=== PATIENT | male | born 1990 | race Caucasian/White ===

== ENCOUNTER 2018-01-25 08:04 | Inpatient (IN) | payer OTHER ==
[~2018-01-25] VITALS: Ht 177.8 cm; Wt 71.3 kg
--- NOTE | 2018-01-25 08:10 | ED GENERAL ADULT ---
See Addendum History of Present Illness General Chief Complaint: Psychiatric Related Complaint Stated Complaint: +SI Source: patient Exam Limitations: no limitations Vital Signs & Intake/Output Vital Signs & Intake/Output Vital Signs Date Time Temp Pulse Resp B/P B/P Pulse O2 O2 Flow FiO2 Mean Ox Delivery Rate 01/26 0821 98 Room Air Room Air 01/25 809 98.0 80 20 142/82 99 Room Air Allergies Coded Allergies: No Known Allergies (01/25/18) Triage Nurses Notes Reviewed? yes Onset: Abrupt Duration: day(s): Timing: recent history HPI: 01/25/18 8:50 AM 27-year-old man presents to the emergency department for depression and suicidal ideation. According to the patient he's been using intravenous cocaine and heroin over the last 10 years. He says he's been into detox and through drug rehabilitation programs in the past. He is unable to get clean. He says he last used yesterday. He has track pimentel in both upper extremities. He denies any past medical problems. Status post suicidal attempt in May of this year. He tried to hang himself. Past History Travel History Traveled to [place] past 21 day No Medical History Any Pertinent Medical History? see below for history Surgical History Surgical History: non-contributory Psychosocial History What is your primary language Singaporean Tobacco Use: Current Daily Use Daily Tobacco Use Amount/Type: => 5 Cigarettes daily ETOH Use: alcoholic Illicit Drug Use: heroin, crack meth Family History Hx Contributory? No Review of Systems Review of Systems Constitutional: Denies: fever. EENTM: Reports: no symptoms. Respiratory: Denies: short of breath. Cardiovascular: Denies: chest pain. GI: Reports: no symptoms. Genitourinary: Reports: no symptoms. Musculoskeletal: Reports: no symptoms. Skin: Reports: no symptoms. Neurological/Psychological: Reports: depressed. Hematologic/Endocrine: Reports: no symptoms. Immunologic/Allergic: Reports: no symptoms. Physical Exam Physical Exam General Appearance: alert, awake, anxious, mild distress Head: atraumatic, normal appearance Eyes: Bilateral: normal appearance, PERRL, EOMI. Ears, Nose, Throat: normal pharynx, normal ENT inspection Neck: normal inspection, supple Respiratory: normal breath sounds, chest non-tender, no respiratory distress Cardiovascular: regular rate/rhythm Peripheral Pulses: 4+ radial (R), 4+ radial (L) Gastrointestinal: soft, non-tender Back: normal range of motion Extremities: normal range of motion Neurologic/Psych: awake, alert, oriented x 3 Skin: punctate abrasions RUE Core Measures ACS in differential dx? No CVA/TIA Diagnosis: No Sepsis Present: No Sepsis Focused Exam Completed? No Progress Differential Diagnoses I considered the following diagnoses in my evaluation of the patient: [ Depression, suicidal ideation, substance abuse] Plan of Care: Orders Procedure Date/time Status URINE DRUG SCREEN FOR ER ONLY 01/25 829 Active Laboratory Tests 01/25/18 0830: Methadone Screen Pending, Barbiturate Screen Pending, Ur Phencyclidine Scrn Pending, Amphetamines Screen Pending, U Benzodiazepines Scrn Pending, Urine Cocaine Screen Pending, Urine Cannabis Screen Pending Initial ED EKG: none Departure Departure Disposition: STILL A PATIENT Condition: Stable Clinical Impression Primary Impression: Depression Secondary Impressions: Opiate dependence Departure Forms: Customer Survey General Discharge Information Comments 01/25/18 9 AM The patient was treated with by mouth clonidine and a nicotine patch. Crisis consultation was requested. Critical Care Note Critical Care Note Critical Care Time: non-applicable
[2018-01-25 09:00] VITALS: BP 142/82
[2018-01-25 09:54] LABS: ABSOLUTE BASOPHIL COUNT 0 /CUMM (0.0-0.2); ABSOLUTE EOSINOPHIL COUNT 0.1 /CUMM (0.0-0.7); ABSOLUTE LYMPH COUNT 1.2 /CUMM (1.2-3.4); ABSOLUTE MONOCYTE COUNT 0.4 /CUMM (0.10-0.60); BASOPHIL % 0.4 % (0.0-2.0); EOSINOPHIL % 1.6 % (0-5); GRANULOCYTE % 75.1 % (42.2-75.2); HEMATOCRIT 45.8 % (42-52); MEAN CORPUSCULAR HGB 25.6 PG (27.0-31.0); MEAN CORPUSCULAR HGB CONC 31.6 G/DL (33.0-37.0); MEAN CORPUSCULAR VOLUME 81.1 FL (80.0-94.0); MEAN PLATELET VOLUME 8.6 FL (7.4-10.4); PLATELET COUNT 237 /CUMM (130-400); RBC DISTRIBUTION WIDTH 14.5 % (11.5-14.5); RED BLOOD CELL CT 5.65 /CUMM (4.70-6.10); WHITE BLOOD CELL COUNT 6.6 /CUMM (4.8-10.8)
[2018-01-25] MEDS ORDERED: NICOTINE PATCH1 EAC3 TOP (12:28)
--- NOTE | 2018-01-25 14:41 | ED PSYCH CRISIS CONSULTATION ---
See Addendum Crisis Consult Basic Assessment Date of Consult: 01/25/18 Responsible Person/Accompanied By: Self Insurance Authorization: Insurance #1: Insurance name: JONATHAN GOODWIN Phone number: Policy number: [id number] Group number: Authorization number: ED Provider: Patient's ED Provider: Torres Olsen DO Primary Care Physician: Patient's PCP: Patient Has No Primary Care Dr PCP's Phone Number: Current Psychiatrist: Denies Chief Complaint: Psychiatric Related Complaint Patient's Quote: "I'm suicidal and I can't stop using drugs" Present Illness: Assessment completed by Jenifer Mcclendon LCSW: Pt is a 27 year old single, , male with an extensive history of chronic substance use who brought himself to the ED this morning reporting suicidal thoughts. Medically cleared. Pt reports suicidal thoughts with a plan to overdose on a variety of substances or drive his car off the road due to his ongoing substance use, legal issues, unemployment, and homelessness. Pt denies HI/AH/VH. Pt states he nearly drove his car off the road last evening while driving 80[address] on [address] highway but drove himself to [facility] instead after thinking of his parents and siblings. Pt has been using 4 bundles of IV heroin, approximately $50-$100 of crack cocaine, about 2 pints of Whiskey, and about 4mg-6mg of Benzodiazepines daily since 2014. He states he has been using substances since 2006 and has been to multiple substance abuse facilities but always relapsed upon discharge. Pt admits he was last in treatment at [facility] but signed himself out AMA about a week ago and relapsed. He reports his longest sobriety was from [id number] when he was on Methadone through the [facility] however relapsed after his cousin completed suicide by hanging in 2014. Pt reports having one prior suicide attempt by hanging in May 2017 but the nylon strap he used broke. He reports one prior history of IP psych admission in 2012 for SI thoughts and substance use. No current medications or history of. He reports having court tomorrow for charges of larceny and possession of narcotics and admits feeling anxious about it. He has been living out of his car since December of this year after losing his apartment because he did not pay his rent. Pt states his parents are supportive but he is not allowed to live with them due to his chronic substance use and stealing to support his habit. This check writer spoke to pt father, Les, by phone. Dad concurs with pt history and self-report. Father states he is very worried about pt as he believes pt is at his wits end because he cannot seem to stay sober, is homeless, and has legal problems. Father denies pt has any history of violence. Patient's Address: [address] [place] [address] Other Phone Number: Who Do You Live With? Other (see notes) (Self- lives out of his car) Family/Informants Interviewed: Telephone call with pt's father, Les Rainey, Allergies - Coded Allergies: naloxone (ANAPHYLAXIS 01/25/18) Current Medications - Scheduled Medications Nicotine (Nicotine Patch) 21 MG/24 HOUR PATCH.TD24 1 PAT TOP DAILY SMOKING CESSATION #14 (Reported) Entered as Reported by Gale Hu on 01/25/18 1228 Laboratory Results: Laboratory Tests 01/25/18 1300: Troponin I Cancelled 01/25/18 0945: Anion Gap 11, Estimated GFR > 60, BUN/Creatinine Ratio 17.1, Glucose 114 H, Calcium 10.0, Total Bilirubin 0.5, AST 17, ALT 28, Alkaline Phosphatase 63, Troponin I < 0.01, Total Protein 6.9, Albumin 4.1, Globulin 2.8, Albumin/ Globulin Ratio 1.5, CBC w Diff NO MAN DIFF REQ, RBC 5.65, MCV 81.1, MCH 25.6 L, MCHC 31.6 L, RDW 14.5, MPV 8.6, Gran % 75.1, Lymphocytes % 17.4 L, Monocytes % 5.5, Eosinophils % 1.6, Basophils % 0.4, Absolute Granulocytes 5.0, Absolute Lymphocytes 1.2, Absolute Monocytes 0.4, Absolute Eosinophils 0.1, Absolute Basophils 0, Serum Alcohol < 10.0 01/25/18 0830: Urine Opiates Screen > 4000.00 H, Methadone Screen < 40, Barbiturate Screen 65, Ur Phencyclidine Scrn < 6.00, Amphetamines Screen < 100, U Benzodiazepines Scrn > 800 H, Urine Cocaine Screen > 1000 H, Urine Cannabis Screen < 5.00 Past History Past Surgical History Surgical History: non-contributory Psychosocial History Strengths/Capabilities: Seeking treatment, family support, education level, resourceful, sense of humor Physical Limitations (Interventions): Denies Psychiatric Treatment History Psych Treatment Psychiatric Treatment Yes Inpatient Treatment Yes Outpatient Treatment No Location of Treatment Inpatient hx:[facility] 2012. Reason for Treatment Suicidal thoughts, substance abuse Dates of Treatment 2012 x 1 week Response to Treatment Fair Diagnosis by History: Unspecified Depression, chronic polysubstance use (Opiates, Cocaine, ETOH, Benzodiazapines) Substance Use/Abuse History Drug Use/Abuse 1 Substances Used/Abused Yes Substance Used/Abused Alcohol (Whiskey) First Use 2006 Last Used 01/23/18 How much used/taken 2 pints How often Daily For how long Primarily daily over the past 10 years Route of use by mouth Drug Use/Abuse 2 Substances Used/Abused Yes Substance Used/Abused Benzodiazepines (Either Xanex, Ativan or Klonop) First Use 2011 Last Used 01/24/18 How much used/taken Xanex-4mg, Klonopin- 6mg, Ativan-6mg How often Daily.Either Xanex,Ativan,or Klonopin(will not use all at same time For how long since 2014 Route of use by mouth Drug Use/Abuse 3 Substances Used/Abused Yes Substance Used/Abused Crack Cocaine First Use 2011 Last Used 01/24/18 How much used/taken $50-$100 per day How often Daily For how long since 2014 Route of use smoking Drug Use/Abuse 4 Substances Used/Abused Yes Substance Used/Abused Non-Prescribed Opiates (Percocets) First Use since 2011 Last Used 2011 How much used/taken doesn't remember How often daily For how long 5 years Route of use by mouth Drug Use/Abuse 5 Substances Used/Abused Yes Substance Used/Abused Heroin First Use 2011 Last Used 01/24/18 How much used/taken 4 bundles per day How often daily For how long since 2014 Route of use Intravenous Substance Abuse Treatment Substance Abuse Treatment Past Substance Abuse [place] Yes Inpatient Treatment Yes ([facility]) Outpatient Treatment Yes ([facility]) Location of Treatment [facility] [place], [facility] Reason for Treatment Opiate use, Cocaine use, Alcohol use, Benzodiazapine use Dates of Treatment Extensive histroy since 2006, last tx at [facility] until approx 1 week ago Response to Treatment Inconsistent. Longest sobriety was [id number] Comments: [place]:May 2017, [facility]: 2006, 2008, 2010, [facility]: 2010, 2011, 2012, 2017(left AMA 1 week ago) Current Mental Status Mental Status Orientation: Person, Place, Situation Affect: WNL Speech: WNL Neuro-vegetative: Appetite Decreased, Energy Decreased, Loss of Interest, Sleep Disturbance Appearance Appearance- Dress/Hygiene: Positive eye contact, scab on nose, in BH garb Behaviors Thought Process: WNL Thought Content: WNL Memory: WNL Insight: Fair SI/HI Risk Assessment Past Suicidal Ideation/Attempts Yes (x 1 year) Current Suicidal Ideation/Att Yes Past Homicidal Ideation/Att: No Current Homicidal Ideation/Attempts No Degree of Intent: Plan, States Intent, Thoughts/No Intent (OD or drive car off road) Danger To: Self Gravely Disabled: Poor Judgment Risk Factors: high anxiety/distress, history of suicide atmpts, SA/MH hospitalized, substance abuse, isolate/no social support, male, limited support, homeless Lethality Ratin PTSD Checklist PTSD Done? patient declined ED Management Sitter: Yes Restraints: No DSM5/PS Stressors/Medical Prob Diagnosis' (DSM 5, Stressors, Medical): F32.9 Unspecified Depressive Disorder F11.20 Opiate Use, Severe F14.20 Cocaine Use, Severe F10.20 Alcohol Use, Severe F13.20 Sedative, Hypnotic Anxiolytic Use, Severe Current GAF: 30 Departure Disposition Psych Medical Clearance Date: 01/25/18 Medically Cleared at: 1300 Time Started: 1300 Time Ended: 1345 Psychiatrist Consulted: Dr. Reid Date Disposition Established: 01/25/18 Time Disposition Established: 1530 Plan for Disposition - Modality: Hold over for ongoing assessment of risk Rationale for Disposition: Pt requires further observation and assessment of risk Referrals Patient Has No Primary Care Dr (PCP/Family)
[2018-01-25 16:14] VITALS: BP 113/57
[2018-01-25 23:21] VITALS: BP 112/55
[2018-01-26] VITALS (13 sets, daily range): BP systolic 99–128; BP diastolic 53–84
--- NOTE | 2018-01-26 22:50 | History & Physical ---
Matt HARRIS,[facility] 01/26/18 9182: General Information and HPI MD Statement: I have seen and personally examined LESTER THOMAS and documented this H&P. The patient is a 27 year old M who presented with a patient stated chief complaint of [Alcohol detox]. Source of Information: patient Exam Limitations: no limitations History of Present Illness: Mr. Thomas is a 27-year-old gentleman with past medical history of polysubstance abuse, anxiety and depression with suicidal ideation(suicide attempt in 2017) presents for alcohol detox. Patient states that he drinks around 750ml of whiskey per day for the past 10 years. His last drink was 5 days ago. Also had suicidal ideations and wanted to hang himself(does not have the suicidal ideations anymore). Reports nausea and vomiting 2, but denies any headache, visual or auditory hallucinations and homicidal ideations. He also had an episode of seizure last May when he tried to detox himself. He was admitted to [facility] in 2010 for alcohol detox. He was recently enrolled in an alcohol detox program at [facility], but left A 1 week ago. His last period of sobriety was from 2012- 2014 and during that period he was on methadone(from [facility]). He also admits to IV heroine shot before coming, states he takes around 10 shots a day and also used cocaine on Friday. Patient also complaining of lower abdominal pain, which is sharp and 5/10 in intensity, starting today associated with nonbloody loose watery stools 3 episodes. Also endorses dysuria and increased frequency. Denies any fever/ chills. Patient is homeless and has been living in his car for the past 1 month. Both the parents also have history of alcohol abuse currently sober. Allergies/Medications Allergies: Coded Allergies: naloxone (ANAPHYLAXIS 01/25/18) Home Med list Nicotine (Nicotine Patch) 21 MG/24 HOUR PATCH.TD24 1 PAT TOP DAILY SMOKING CESSATION (Reported) Past History Travel History Traveled to [place] past 21 day No Medical History Psychiatric: anxiety, depression, IV drug abuse, substance abuse Isolation History: Standard Surgical History Surgical History: non-contributory Past Family/Social History Psychosocial History Where do you live? Other (Homeless) Smoking Status: Current Everyday Smoker (1 PPD x 20 yrs ) ETOH Use: alcoholic Illicit Drug Use: heroin, crack meth Functional Ability ADLs Independent: dressing, eating, toileting, bathing. Ambulation: independent IADLs Independent: shopping, housework, finances, food prep, telephone, transportation , medication admin. Review of Systems Review of Systems Constitutional: Reports: no symptoms. EENTM: Reports: no symptoms. Cardiovascular: Reports: no symptoms. Respiratory: Reports: no symptoms. GI: Reports: abdominal pain, diarrhea, nausea, vomiting. Genitourinary: Reports: no symptoms. Musculoskeletal: Reports: no symptoms. Skin: Reports: no symptoms. Neurological/Psychological: Reports: no symptoms. Hematologic/Endocrine: Reports: no symptoms. Immunologic/Allergic: Reports: no symptoms. All Other Systems: Reviewed and Negative Exam & Diagnostic Data Last 24 Hrs of Vital Signs/I&O Vital Signs Date Time Temp Pulse Resp B/P B/P Pulse O2 O2 Flow FiO2 Mean Ox Delivery Rate 01/27 0202 98.0 70 18 118/62 01/27 0153 98.0 70 16 118/62 97 Room Air 01/26 2354 98.4 73 18 124/59 01/26 2353 98.4 73 18 124/59 98 Room Air 01/26 2152 100.0 78 18 128/76 97 Room Air Room Air 01/26 2151 100.0 86 18 128/76 01/26 2036 100.1 72 18 121/65 01/26 1830 100.8 76 12 127/65 01/26 1821 100.8 76 12 127/65 99 Room Air 01/26 1626 98.2 85 18 128/84 97 Room Air Room Air 01/26 1625 98.2 85 18 128/84 01/26 1524 98.2 80 18 112/60 01/26 1424 98.1 78 18 108/53 01/26 1422 98.1 78 18 108/53 01/26 1348 98.1 78 18 108/53 99 01/26 1030 98.4 74 18 113/74 01/26 1019 98.9 74 18 113/66 98 Room Air 01/26 0830 96.6 63 18 115/67 01/26 0704 97.3 76 18 112/59 98 Room Air 01/26 0448 98.2 96 18 118/78 01/26 0448 98.2 96 18 118/78 96 Room Air Physical Exam General Appearance Alert, Oriented X3, Cooperative, No Acute Distress, Somnolent Skin No Rashes, No Breakdown HEENT Atraumatic, PERRLA, EOMI, Mucous Membr. moist/pink Neck Supple, No JVD Cardiovascular Regular Rate, Normal S1, Normal S2, No Murmurs Lungs Clear to Auscultation, Normal Air Movement Abdomen Normal Bowel Sounds, Soft, No Tenderness Extremities No Clubbing, No Cyanosis, No Edema, Normal Pulses Last 24 Hrs of Labs/Vicente: Laboratory Tests 01/27/18 0055: CBC w Diff MAN DIFF ORDERED, RBC 5.82, MCV 79.5 L, MCH 26.8 L, MCHC 33.8, RDW 14.0, MPV 8.6, Gran % 85.3 H, Lymphocytes % 12.1 L, Monocytes % 2.4, Eosinophils % 0.2, Basophils % 0, Absolute Granulocytes 12.3 H, Segmented Neutrophils 84 H, Absolute Lymphocytes 1.8, Lymphocytes 11 L, Monocytes 5, Absolute Monocytes 0.3, Absolute Eosinophils 0, Absolute Basophils 0, Platelet Estimate ADEQUATE, Polychromasia 1+, Poikilocytosis 2+, Anisocytosis 1+, Microcytic Cells 1+, Ovalocytes 1+, Stomatocytes 1+, Fld Total RBCs Counted 100 Microbiology 01/26 2354 URINE ROUT: Urine Culture - ORD 01/26 2354 BLOOD: Blood Culture - COLB 01/26 2354 BLOOD: Blood Culture - COLB Diagnostic Data EKG Results Normal sinus rhythm Heart rate 81 T-wave inversions in V3 to V6 QTC of 479 CXR Results FINDINGS: No significant abnormality is noted involving the heart, lungs, mediastinum, bony thorax or soft tissues. IMPRESSION: Unremarkable examination. Assessment/Plan Assessment: Mr. Thomas is a 27-year-old gentleman with past medical history of alcohol dependence and polysubstance abuse(opiates, heroine, cocaine), anxiety and depression with suicidal ideation(suicide attempt in 2017) presents for alcohol detox. Problem List; 1. Alcohol detox 2. Suicidal ideation 3. Opiates, benzos, IV heroine and cocaine abuse 4. Febrile with Tmax of 100.8 and Leukocytosis 5. Abdominal pain, nausea and vomiting - likely viral gastroenteritis 6. Dysuria and increased urinary frequency 7. EKG changes; T-wave inversions in leads V3-V6 - We will admit the patient to general medicine floor - CIWA protocol with IV ativan as needed and schedueled PO ativan 2mg Q 6 - Replete Thiamine and Folate - Zofran as needed for nausea and vomiting - Psych consult - Social Work consult - Continue 1:1 sitter for suicidal ideations. - Will check HIV and Hep panel given IV drug abuse - UA at the time of presentation was negative, Will repeat UA and Obtain Urine culture as patient febrile 100.8 with white count of 14.5 and complaining of lower abdominal pain and urinary symptoms. - CT abdomen and pelvis obtained for new onset abdominal pain, diarrhea and fever, negative for any acute pathology. Will obtain C. difficile if the diarrhea persists. - Will repeat CBC in am to monitor leukocytosis. - We will repeat troponins and EKG 3, given T wave changes. No old EKG available for comparison. DVT prophylaxis; subcutaneous heparin Patient is full code As Ranked By This Provider Problem List: 1. Opiate dependence 2. Alcohol dependence 3. Suicidal ideations Core Measures/Misc (07/27) Acute Coronary Syndrome ACS Diagnosis: No Congestive Heart Failure Congestive Heart Failure Diagnosis No Cerebrovascular Accident CVA/TIA Diagnosis: No VTE (View Protocol) VTE Risk Factors Age>40 No Mechanical VTE Prophylaxis d/t N/A MechProphylax Ordered No VTE Pharm Prophylaxis d/t NA PharmProphylax ordered Sepsis (View protocol) Sepsis Present: No Jorge Arguelles 01/27/18 0235: Resident Review Statement Resident Statement: examined this patient, discussed with paralegal internship, agreed with paralegal internship, discussed with family, reviewed EMR data (avail), discussed with nursing , discussed with case mgmt, reviewed images, amended to note Other Findings: This is a 27-year-old male with extensive history of chronic substance abuse/ opiate, cocaine, alcohol abuse, smoker, unemployed, homeless, depression, suicidal ideation, IV drug abuse presented to the ED on 01/25/2018 reporting suicidal ideation and alcohol detoxification. Pt reports suicidal thoughts with a plan to overdose on a variety of substances or drive his car off the road due to his ongoing substance use, legal issues, unemployment, and homelessness. Pt denies HI. Pt states he nearly drove his car off the road last evening while [place] 80[address] [place] [address] but drove himself to [facility] instead after thinking of his parents and siblings. Pt has been using 4 bundles of IV heroin, crack cocaine, about 750 ml of Whiskey , and about 4mg-6mg of Benzodiazepines daily since 2014. He states he has been using substances since 2006 and has been to multiple substance abuse facilities but always relapsed upon discharge. Pt admits he was last in treatment at [facility] but signed himself out AMA about a week ago and relapsed. He reports his longest sobriety was from 2012- 2014 when he was on Methadone through the [facility] however relapsed after his cousin completed suicide by hanging in 2014. Pt reports having one prior suicide attempt by hanging in May 2017 but the nylon strap he used broke. He reports one prior history of IP psych admission in 2012 for SI thoughts and substance use. Patient reports that his last alcohol drink was 5 days ago, 750 mL of whiskey. He also reports that he took 4 bundles of crack cocaine and 10 shots of IV heroine before coming to the emergency room. Also reports withdrawal seizures history in 2016. Never intubated. Patient reports nausea, vomiting, lower abdomen pain, dysuria, frequency. He denied any sweating, agitation, anxiety, visual hallucinations, auditory hallucinations. He is alert awake and oriented urinary complaints. He is smoking 1 pack per day for last 20 years. vitals Febrile MAXIMUM TEMPERATURE 100.8, heart rate 70, respiratory rate 18, blood pressure 122 seconds, saturating at 97 on room air. On exam HEENT within normal limits S1-S2 normal no murmurs Bilateral air entry good Abdomen soft, nondistended, tenderness on palpation lower quadrant. Motor exam within normal limits. No tremors Lower extremity no swelling Bilateral arms -punctate abrasions, track pimentel Labs CBC, BMP normal LFTs normal Troponin negative Utox positive for opiates, benzos, cocaine Chest x-ray no acute cardiopulmonary findings CT abdomen significant abnormality EKG normal sinus rhythm, rate 68, T wave inversion in inferior leads 2, 3 aVF and V3 V4 V5 V6. ua nl. 1. Alcohol detoxification Patient presented with suicidal ideation and requesting for alcohol detoxification. Last drink was 5 days prior to the admission. However he abused IV cocaine and IV heroine before coming to the ER. U tox positive for opiate, benzo, cocaine. * Admit to general med * Vitals every shift * Monitor CIWA * 2 mg every 6 Ativan, taper daily * IV Ativan as per CIWA protocol * Multivitamin * Thiamine * Folate * Psych consult in the a.m. * oyster bed worker consult * Continuous observation monitoring/sitter 2. Nausea /vomiting/diarrhea Most likely gastroenteritis. IV Zofran as needed for nausea. will Get C. difficile if patient has persistent diarrhea 3. Smoker Nicotine patch 21 mg daily 4. IV drug abuser Pt has been using 4 bundles of IV heroin, crack cocaine, about 750 ml of Whiskey , and about 4mg-6mg of Benzodiazepines daily since 2014. He states he has been using substances since 2006 and has been to multiple substance abuse facilities but always relapsed upon discharge. U tox positive for benzo, opiate, cocaine. He denies any chest pain, palpitations, short of breath. However he spiked with a MAXIMUM TEMPERATURE 100.8 in the emergency room. * Serial sets of troponin and EKG given history of cocaine abuse * HIV test * Hepatitis panel * Pancultures * Chest x-ray was negative * CT abdomen no acute findings 4. Lower abdomen pain Patient reports lower abdomen pain with frequency, dysuria. However urinalysis negative for bacteria, WBC, nitrate, estarases. * Closely monitor for fever, leukocytosis * Follow-up urine cultures Patient is full code DVT prophylaxis subcutaneous Lovenox Regular diet Kole HARRIS, [facility] 01/27/18 0425: Attending MD Review Statement Attending Statement Attending MD Statement: examined this patient, discuss w/resident/PA/SERVICES TECH, agreed w/resident/PA/SERVICES TECH, reviewed images, amended to note Attending Assessment/Plan: 27 yo M current everyday smoker, who is homeless, has a h/o alcohol abuse, polysubstance abuse including IVDA previously was on methadone program, depression, is here for alcohol detox and reported suicidal thoughts. Patient was recently undergoing treatment at [facility] but left AMA. Patient consumes 2 pints of whiskey (fireball), IV heroin, crack cocaine and benzos. Apparently his last drink was 5 days ago. He has a h/o alcohol withdrawal seizure (last episode was in May 2017). He c/o nausea, vomiting, diarrhea and lower abdominal discomfort. Vitals stable except for Tmax 100.8. Exam as above. Labs: WBC 6.6 --> 14.5, trop neg. Utox positive for opiates, benzos and cocaine. Alcohol <10. UA neg (on January 25). CXR: no acute abnormality. CT Abd/pelvis: unremarkable. EKG: sinus rhythm with TWI in inferior leads and V3-6 (no old ekg to compare). Assessment and plan: 1. Alcohol withdrawal, suicidal ideation 2. Polysubstance abuse, IV drug abuse 3. Systemic inflammatory response syndrome 4. Nausea, vomiting, diarrhea, CT unremarkable 5. Smoker 6. EKG changes rule out ACS - Admit to general medicine - Seizure and aspiration precautions - Sitter protocol - CIWA protocol - IV ativan per CIWA - PO ativan 2 mg Q6 - Banana bag, IV fluids as needed - Advance diet as tolerated - Check hepatitis panel and HIV - Psych consult - Social work consult - Panculture, repeat urinalysis as patient c/o urinary frequency. Initial UA is negative. - Watch off antibiotics for now. - Based on the claim history, patient has been on divalproex, clonidine, gabapentin, hydroxyzine, trazodone in the past currently he is not taking any of these meds. - Smoking cessation counseling, nicotine patch DVT ppx Lovenox. Full code.
[2018-01-27] VITALS (10 sets, daily range): BP systolic 110–125; BP diastolic 60–80
[2018-01-27 01:13] LABS: ABSOLUTE BASOPHIL COUNT 0 /CUMM (0.0-0.2); ABSOLUTE EOSINOPHIL COUNT 0 /CUMM (0.0-0.7); ABSOLUTE GRANULOCYTE CT 12.3 /CUMM (1.4-6.5); ABSOLUTE LYMPH COUNT 1.8 /CUMM (1.2-3.4); ABSOLUTE MONOCYTE COUNT 0.3 /CUMM (0.10-0.60); BASOPHIL % 0 % (0.0-2.0); EOSINOPHIL % 0.2 % (0-5); GRANULOCYTE % 85.3 % (42.2-75.2); HEMATOCRIT 46.3 % (42-52); MEAN CORPUSCULAR HGB 26.8 PG (27.0-31.0); MEAN CORPUSCULAR HGB CONC 33.8 G/DL (33.0-37.0); MEAN CORPUSCULAR VOLUME 79.5 FL (80.0-94.0); MEAN PLATELET VOLUME 8.6 FL (7.4-10.4); PLATELET COUNT 319 /CUMM (130-400); RED BLOOD CELL CT 5.82 /CUMM (4.70-6.10)
[2018-01-27 01:17] LABS: WHITE BLOOD CELL COUNT 14.5 /CUMM (4.8-10.8)
--- NOTE | 2018-01-27 01:37 | RADIOLOGY REPORT ---
EXAMINATION: XR PORTABLE CHEST CLINICAL INFORMATION: Febrile. IV drug abuser. COMPARISON: None TECHNIQUE: Portable frontal view of the chest was obtained. FINDINGS: No significant abnormality is noted involving the heart, lungs, mediastinum, bony thorax or soft tissues. IMPRESSION: Unremarkable examination.
--- NOTE | 2018-01-27 02:15 | CT SCAN REPORT ---
EXAMINATION: CT ABDOMEN AND PELVIS WITHOUT CONTRAST CLINICAL INFORMATION: Fever. Diarrhea. IV drug abuse. COMPARISON: None TECHNIQUE: Multidetector volumetric imaging was performed from the superior aspect of the liver through the pubic symphysis. Sagittal and coronal reformatted images were obtained on the technologist's workstation. DLP: 267.04 mGy-cm FINDINGS: LUNG BASES: The visualized lung bases are unremarkable. LIVER, GALLBLADDER, AND BILIARY TREE: The liver is normal in size, shape, and attenuation. No focal hepatic lesion or biliary ductal dilatation is present. The gallbladder is unremarkable with no evidence of radiopaque gallstones, gallbladder wall thickening, or obvious pericholecystic inflammatory changes. PANCREAS: Unremarkable. SPLEEN: Unremarkable. ADRENAL GLANDS: Unremarkable. KIDNEYS AND URETERS: The kidneys are normal in size, shape, and attenuation. No hydronephrosis, hydroureter, or calculi seen. No perinephric stranding. BLADDER: Unremarkable. GASTROINTESTINAL TRACT: The small and large bowel are unremarkable. The appendix is not visualized. There is no inflammation of the mesentery. ABDOMINAL WALL: No significant hernia is appreciated. LYMPH NODES: Normal. VASCULAR: Unremarkable. PELVIC VISCERA: Unremarkable. OSSEOUS STRUCTURES: Unremarkable. IMPRESSION: No significant abnormality.
--- NOTE | 2018-01-27 04:29 | Admission Certification ---
Admission Certification Certification Statement - As attending physician, I certify that at the time of - admission, based on clinical presentation, severity of - symptoms, need for further diagnostic testing and - therapeutic interventions, and risk of adverse outcomes - without in-hospital treatment, in my clinical assessment, - this patient requires an acute hospital stay for a minimum - of two nights or longer. I have also considered psychsocial - factors such as support system, advanced age, financial - issues, cognitive issues, and failed out-patient treatments, - past re-admission history, safety of patient, and lack of - compliance as applicable. Specific rationale supporting this admission is: Alcohol withdrawal, polysubstance abuse, suicidal ideation.
[2018-01-27 06:25] LABS: ABSOLUTE BASOPHIL COUNT 0.1 /CUMM (0.0-0.2); ABSOLUTE EOSINOPHIL COUNT 0 /CUMM (0.0-0.7); ABSOLUTE GRANULOCYTE CT 11.1 /CUMM (1.4-6.5); ABSOLUTE LYMPH COUNT 2.7 /CUMM (1.2-3.4); ABSOLUTE MONOCYTE COUNT 0.7 /CUMM (0.10-0.60); BASOPHIL % 0.4 % (0.0-2.0); EOSINOPHIL % 0 % (0-5); GRANULOCYTE % 75.8 % (42.2-75.2); HEMATOCRIT 47.3 % (42-52); MEAN CORPUSCULAR HGB 26.6 PG (27.0-31.0); MEAN CORPUSCULAR HGB CONC 32.9 G/DL (33.0-37.0); MEAN CORPUSCULAR VOLUME 80.8 FL (80.0-94.0); MEAN PLATELET VOLUME 9.1 FL (7.4-10.4); PLATELET COUNT 298 /CUMM (130-400); RBC DISTRIBUTION WIDTH 14.2 % (11.5-14.5); RED BLOOD CELL CT 5.86 /CUMM (4.70-6.10); WHITE BLOOD CELL COUNT 14.6 /CUMM (4.8-10.8)
--- NOTE | 2018-01-27 10:02 | PN- Housestaff ---
Ernst HARRIS,[facility] 01/27/18 1002: Subjective Follow-up For: Substance abuse Suicidal ideation Leukocytosis Subjective: No acute events overnight. Feeling Nasueaous. Having diarrhea. Complaining of neck pain. Review of Systems Constitutional: Reports: see HPI. Objective Last 24 Hrs of Vital Signs/I&O Vital Signs Date Time Temp Pulse Resp B/P B/P Pulse O2 O2 Flow FiO2 Mean Ox Delivery Rate 01/27 2152 97.8 60 18 115/67 98 01/27 1727 99.3 58 19 120/80 98 Room Air 01/27 1600 18 98 Room Air 01/27 1400 98.2 62 20 112/62 01/27 1400 98.2 62 20 112/62 99 Room Air 01/27 1200 98.3 68 18 110/60 01/27 1003 79 18 112/70 97 Room Air 01/27 1000 79 18 112/70 01/27 0944 98.5 84 20 122/64 99 Room Air 01/27 0614 98.3 65 18 125/67 01/27 0614 98.0 65 18 125/67 98 Room Air 01/27 0407 98.7 61 18 117/65 99 Room Air 01/27 0400 98.7 61 18 117/65 01/27 0202 98.0 70 18 118/62 01/27 0153 98.0 70 16 118/62 97 Room Air 01/26 2354 98.4 73 18 124/59 01/26 2353 98.4 73 18 124/59 98 Room Air Intake & Output 01/27 1600 01/27 0800 01/27 0000 Intake Total 970 Output Total 200 Balance 770 Intake, IV 250 Intake, Oral 720 Number 4 Bowel Movements Output, 200 Emesis Patient 180 lb Weight Physical Exam General Appearance: Alert, Oriented X3, Cooperative, Mild Distress, diaphoretic Skin: multiple IV tracks of b/l arms Cardiovascular: Regular Rate, Normal S1, Normal S2 Lungs: Clear to Auscultation, Normal Air Movement Abdomen: Normal Bowel Sounds, Soft, diffuse lower abd pain Extremities: no LE edema Vascular: 2+ radial pulses Current Medications: Current Medications Sig/Chris Start time Last Medication Dose Route Stop Time Status Admin Acetaminophen 1,000 MG Q6-PRN PRN 01/27 1330 AC 01/27 IV 1337 Acetaminophen 0 .STK-MED ONE 01/27 0201 DC PO Acetaminophen 650 MG Q6P PRN 01/26 2330 AC 01/27 PO 0158 Clonidine 0.1 MG TID PRN 01/26 0145 DC 01/26 PO 1424 Cyanocobalamin/ 1 BAG ONCE ONE 01/27 1000 DC 01/27 Thiamine/Pyridoxine IV 01/27 1759 1133 Sodium Chloride 1,000 ML Enoxaparin Sodium 40 MG DAILY 01/27 1000 AC SC Folic Acid 1 MG DAILY 01/28 1000 AC PO Folic Acid 1 MG DAILY 01/27 1000 CAN PO Gabapentin 300 MG Q8 01/26 0143 DC 01/26 PO 1424 Hydroxyzine HCl 50 MG TID PRN 01/27 1345 CAN PO Loperamide HCl 4 MG DAILY 01/27 1345 AC 01/27 PO 1413 Loperamide HCl 2 MG Q6P PRN 01/27 1345 AC PO Lorazepam 0 .STK-MED ONE 01/27 0532 DC PO Lorazepam 0 .STK-MED ONE 01/27 0006 DC PO Lorazepam 2 MG Q6 01/26 2359 AC 01/27 PO 1725 Lorazepam 0 Q1P PRN 01/26 2345 AC 01/27 IV 2011 Lorazepam 1 MG Q4P PRN 01/26 1745 DC 01/26 IV 2202 Lorazepam 2 MG Q4P PRN 01/26 1745 DC IV Melatonin 5 MG AT BEDTIME 01/27 2200 AC 01/27 PO 2059 Methadone HCl 5 MG BID 01/30 1000 AC PO 01/30 2300 Methadone HCl 10 MG BID 01/29 1000 AC PO 01/29 2300 Methadone HCl 15 MG BID 01/28 1000 AC PO 01/28 2300 Methadone HCl 20 MG BID 01/27 1345 AC 01/27 PO 01/27 2300 2100 Multivitamins 1 TAB DAILY 01/28 1000 AC PO Multivitamins 1 TAB DAILY 01/27 1000 CAN PO Nicotine 21 MG DAILY 01/25 1000 AC 01/27 TOP 1136 Ondansetron HCl 4 MG .STK-MED ONE 01/27 0847 DC IM 01/27 0848 Ondansetron HCl 4 MG Q6P PRN 01/25 2330 DC 01/27 PO 1140 Oxycodone HCl 5 MG Q6 PRN 01/27 1330 CAN PO Patient Medication 1 ED ONE ONE 01/27 1700 DC Teaching ED 01/27 1701 Thiamine HCl 100 MG DAILY 01/28 1000 AC PO Thiamine HCl 100 MG DAILY 01/27 1000 CAN PO Trimethobenzamide HCl 200 MG Q6-PRN PRN 01/27 1330 AC 01/27 IM 1549 Last 24 Hrs of Lab/Vicente Results Last 24 Hrs of Labs/Mics: Laboratory Tests 01/27/18 0619: Anion Gap 16, Estimated GFR > 60, BUN/Creatinine Ratio 21.1, Troponin I < 0.01, CBC w Diff NO MAN DIFF REQ, RBC 5.86, MCV 80.8, MCH 26.6 L, MCHC 32.9 L, RDW 14.2, MPV 9.1, Gran % 75.8 H, Lymphocytes % 18.7 L, Monocytes % 5.1, Eosinophils % 0, Basophils % 0.4, Absolute Granulocytes 11.1 H, Absolute Lymphocytes 2.7, Absolute Monocytes 0.7 H, Absolute Eosinophils 0, Absolute Basophils 0.1 01/27/18 0055: CBC w Diff MAN DIFF ORDERED, RBC 5.82, MCV 79.5 L, MCH 26.8 L, MCHC 33.8, RDW 14.0, MPV 8.6, Gran % 85.3 H, Lymphocytes % 12.1 L, Monocytes % 2.4, Eosinophils % 0.2, Basophils % 0, Absolute Granulocytes 12.3 H, Segmented Neutrophils 84 H, Absolute Lymphocytes 1.8, Lymphocytes 11 L, Monocytes 5, Absolute Monocytes 0.3, Absolute Eosinophils 0, Absolute Basophils 0, Platelet Estimate ADEQUATE, Polychromasia 1+, Poikilocytosis 2+, Anisocytosis 1+, Microcytic Cells 1+, Ovalocytes 1+, Stomatocytes 1+, Fld Total RBCs Counted 100 01/26/18 2354: Sodium Cancelled, Potassium Cancelled, Chloride Cancelled, Carbon Dioxide Cancelled, Anion Gap Cancelled, BUN Cancelled, Creatinine Cancelled, BUN/ Creatinine Ratio Cancelled, Urine Color Cancelled, Urine Clarity Cancelled, Urine pH Cancelled, Ur Specific [place] Cancelled, Urine Protein Cancelled, Urine Ketones Cancelled, Urine Nitrite Cancelled, Urine Bilirubin Cancelled, Urine Urobilinogen Cancelled, Ur Leukocyte Esterase Cancelled, Ur Microscopic Cancelled, Urine Hemoglobin Cancelled, Urine Glucose Cancelled Microbiology 01/27 1700 BLOOD: Blood Culture - RECD 01/27 1650 BLOOD: Blood Culture - RECD 01/27 1617 URINE ROUT: Urine Culture - COLB 01/27 1322 STOOL: Clostridium difficile Toxin A & B - CAN Cancelled: Cancelled via OE: Per MD Decision 01/26 2354 URINE ROUT: Urine Culture - CAN Cancelled: SPECIMEN NOT RECEIVED IN LABORATORY 01/26 2354 BLOOD: Blood Culture - CAN Cancelled: SPECIMEN NOT RECEIVED IN LABORATORY 01/26 2354 BLOOD: Blood Culture - CAN Cancelled: SPECIMEN NOT RECEIVED IN LABORATORY Assessment/Plan Assessment: A: Mr. Rainey is a 27-year-old gentleman with past medical history of alcohol dependence and polysubstance abuse(opiates, heroine, cocaine), anxiety and depression with suicidal ideation(suicide attempt in 2017) presents for susbtance abuse, suicidal ideation #substance abuse State he drinks 750ml whiskey daily Last drink 4 days ago Utox positive for benzos cocaine and opiates HIV and hepatitis panel negative -pt currently withdrawing with anxiety, n/v, diarrhea -qtc prolonged >500 -avoid opiates abd benzos and nartcotic pain meds -cont ativan taper -cont methadone taper -f/u psych recommendations -cont banana bag, start thiamine and folate tomorrow -f/u SW, CM consults #Suicideal ideation -f/u psych recommendations -cp [facility] admission once medically stable #mild fever with leukocytosis T max 100.8 -> 98 consistently WBC 14+ -possibly reactive -possibly due to endocarditis/c.diff -cont to monitor -repeat UA -f/u castellano cx -conside c.diff testing #diffuse lower abd pain CT abd unremarkable -possibly 2/2 to n/v vs gastro vs diarrhea from withdrwal #EKG changes; T-wave inversions in leads V3-V6 Trops <.01 x3 -cont to monitor DVT prophylaxis; subcutaneous heparin Patient is full code Problem List: 1. Alcohol dependence 2. Suicidal ideations Pain Ratin Pain Location: neck Pain Goal: Pain 4 or less Pain Plan: tylenol Tomorrow's Labs & Rationales: cbc bep Familia Egan 01/27/18 1550: Attending Review Statement Attending Statement Attending MD Statement: examined this patient, discuss w/resident/PA/BILINGUAL EXECUTIVE ASSISTANT, agreed w/resident/PA/BILINGUAL EXECUTIVE ASSISTANT, reviewed EMR data (avail), discussed with nursing, discussed with case mgmt Attending Assessment/Plan: Pt with etoh withdrawl and heroid withdrawl. cont on ativan prn per ciwa protocol. started on methadone taper to help with withdrawl. d/w pt the care plan. will f/u on psych recommendatiosn.
[2018-01-28] VITALS: BP 122/62
[2018-01-28 04:00] VITALS: BP 110/68
[2018-01-28 06:30] VITALS: BP 108/67
--- NOTE | 2018-01-28 07:23 | PN- Housestaff ---
Ernst HARRIS,[facility] 01/28/18 0723: Subjective Follow-up For: Substance abuse Suicidal ideation Subjective: No acute evnets overnight. States neck improved. Still having abd pain and diarrhea. Review of Systems Constitutional: Reports: see HPI. Gastrointestinal: Reports: abdominal pain, diarrhea. Musculoskeletal: Reports: joint pain. Objective Last 24 Hrs of Vital Signs/I&O Vital Signs Date Time Temp Pulse Resp B/P B/P Pulse O2 O2 Flow FiO2 Mean Ox Delivery Rate 01/28 1416 97.5 88 20 102/72 97 01/28 0630 97.3 55 18 108/67 100 01/28 0400 97.6 48 18 110/68 01/28 0400 97.6 48 18 110/68 100 Room Air Room Air 01/28 0000 97.9 54 19 122/62 01/28 0000 97.9 54 19 122/62 98 Room Air Room Air 01/28 0000 97.9 54 19 122/62 98 Room Air Room Air 01/27 2152 97.8 60 18 115/67 98 01/27 1727 99.3 58 19 120/80 98 Room Air 01/27 1600 18 98 Room Air Intake & Output 01/28 1600 01/28 0800 01/28 0000 Intake Total 100 500 Output Total Balance 100 500 Intake, IV 250 Intake, Oral 100 250 Patient 153 lb Weight Weight Bed scale Measurement Method Physical Exam General Appearance: Alert, Oriented X3, Cooperative, No Acute Distress Skin: multiple IV tracks noted on b/l arms Cardiovascular: Regular Rate, Normal S1, Normal S2 Lungs: Clear to Auscultation, Normal Air Movement Abdomen: Normal Bowel Sounds, Soft, No Tenderness Extremities: no LE edema Vascular: 2+ radial pulses Current Medications: Current Medications Sig/Chris Start time Last Medication Dose Route Stop Time Status Admin Acetaminophen 1,000 MG Q6-PRN PRN 01/27 1330 AC 01/27 IV 1337 Acetaminophen 650 MG Q6P PRN 01/26 2330 AC 01/27 PO 0158 Cyanocobalamin/ 1 BAG ONCE ONE 01/27 1000 DC 01/27 Thiamine/Pyridoxine IV 01/27 1759 1133 Sodium Chloride 1,000 ML Enoxaparin Sodium 40 MG DAILY 01/27 1000 AC SC Folic Acid 1 MG DAILY 01/28 1000 AC 01/28 PO 0856 Loperamide HCl 4 MG DAILY 01/27 1345 AC 01/28 PO 0856 Loperamide HCl 2 MG Q6P PRN 01/27 1345 AC PO Lorazepam 1.5 MG Q6 01/28 1800 AC PO Lorazepam 2 MG Q6 01/26 2359 DC 01/28 PO 1307 Lorazepam 0 Q1P PRN 01/26 2345 AC 01/28 IV 0902 Melatonin 5 MG AT BEDTIME 01/27 2200 AC 01/27 PO 2059 Methadone HCl 5 MG BID 01/30 1000 AC PO 01/30 2300 Methadone HCl 10 MG BID 01/29 1000 AC PO 01/29 2300 Methadone HCl 15 MG BID 01/28 1000 AC 01/28 PO 01/28 2300 0855 Methadone HCl 20 MG BID 01/27 1345 DC 01/27 PO 01/27 2300 2100 Multivitamins 1 TAB DAILY 01/28 1000 AC 01/28 PO 0856 Nicotine 21 MG DAILY 01/25 1000 AC 01/28 TOP 0857 Patient Medication 1 ED ONE ONE 01/27 1700 DC Teaching ED 01/27 1701 Thiamine HCl 100 MG DAILY 01/28 1000 AC 01/28 PO 0855 Trimethobenzamide HCl 200 MG Q6-PRN PRN 01/27 1330 AC 01/27 IM 1549 Last 24 Hrs of Lab/Vicente Results Last 24 Hrs of Labs/Mics: Laboratory Tests 01/28/18 0658: Anion Gap 11, Estimated GFR > 60, BUN/Creatinine Ratio 20.0, CBC w Diff NO MAN DIFF REQ, RBC 5.41, MCV 80.7, MCH 27.0, MCHC 33.4, RDW 14.1, MPV 8.9, Gran % 52.2, Lymphocytes % 39.1, Monocytes % 7.1, Eosinophils % 1.2, Basophils % 0.4, Absolute Granulocytes 5.6, Absolute Lymphocytes 4.2 H, Absolute Monocytes 0.8 H, Absolute Eosinophils 0.1, Absolute Basophils 0 Microbiology 01/28 1336 URINE ROUT: Urine Culture - COLB 01/27 1700 BLOOD: Blood Culture - RES 01/27 165 BLOOD: Blood Culture - RES 01/27 1617 URINE ROUT: Urine Culture - CAN Cancelled: SPECIMEN NOT RECEIVED IN LABORATORY Assessment/Plan Assessment: A: Mr. Rainey is a 27-year-old gentleman with past medical history of alcohol dependence and polysubstance abuse(opiates, heroine, cocaine), anxiety and depression with suicidal ideation(suicide attempt in 2017) presents for susbtance abuse, suicidal ideation #substance abuse State he drinks 750ml whiskey daily Last drink 4 days ago Utox positive for benzos cocaine and opiates HIV and hepatitis panel negative -pt currently withdrawing with anxiety, n/v, diarrhea but much improved from yesterday -qtc prolonged >500 -avoid opiates abd benzos and nartcotic pain meds -cont ativan taper -cont methadone taper -f/u psych recommendations -cont thiamine and folate tomorrow -f/u SW, CM consults #Suicideal ideation -f/u psych recommendations -[facility] admission once medically stable #mild fever with leukocytosis - resolved T max 100.8 -> 98 consistently WBC ->10.7 Blood cx negative thus far UA negative for signs of infxn -most likely reactive -consider endocarditis/c.diff if fevers continue -cont to monitor -f/u castellano cx -conside c.diff testing #diffuse lower abd pain CT abd unremarkable -possibly 2/2 to n/v vs gastro vs diarrhea from withdrwal #EKG changes; T-wave inversions in leads V3-V6 Trops <.01 x3 -ruled out ACS DVT prophylaxis; subcutaneous heparin Patient is full code Problem List: 1. Alcohol dependence 2. Suicidal ideations 3. Opiate dependence 4. Depression Pain Ratin Pain Location: none Pain Goal: Pain 4 or less Pain Plan: pain pathway Tomorrow's Labs & Rationales: tylenol Familia Egan 01/28/18 1337: Attending MD Review Statement Attending Statement Attending MD Statement: examined this patient, discuss w/resident/PA/POWER DIGGER OPERATOR, agreed w/resident/PA/POWER DIGGER OPERATOR, reviewed EMR data (avail), discussed with nursing, discussed with case mgmt Attending Assessment/Plan: pt doing better today , ciwa not very high. He is doing better on methadone taper. Will get [facility] consult to see him for possible transfer to [facility] and further management. dw pt the care plan.
[2018-01-28 08:06] LABS: ABSOLUTE BASOPHIL COUNT 0 /CUMM (0.0-0.2); ABSOLUTE EOSINOPHIL COUNT 0.1 /CUMM (0.0-0.7); ABSOLUTE GRANULOCYTE CT 5.6 /CUMM (1.4-6.5); ABSOLUTE LYMPH COUNT 4.2 /CUMM (1.2-3.4); ABSOLUTE MONOCYTE COUNT 0.8 /CUMM (0.10-0.60); BASOPHIL % 0.4 % (0.0-2.0); EOSINOPHIL % 1.2 % (0-5); HEMATOCRIT 43.7 % (42-52); MEAN CORPUSCULAR HGB CONC 33.4 G/DL (33.0-37.0); MEAN CORPUSCULAR VOLUME 80.7 FL (80.0-94.0); MEAN PLATELET VOLUME 8.9 FL (7.4-10.4); RBC DISTRIBUTION WIDTH 14.1 % (11.5-14.5); RED BLOOD CELL CT 5.41 /CUMM (4.70-6.10); WHITE BLOOD CELL COUNT 10.7 /CUMM (4.8-10.8)
[2018-01-28 09:17] LABS: GRANULOCYTE % 52.2 % (42.2-75.2); PLATELET COUNT 229 /CUMM (130-400)
[2018-01-28 14:16] VITALS: BP 102/72
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
[2018-01-28 22:52] VITALS: BP 100/60
[2018-01-29 06:00] VITALS: BP 100/63
[2018-01-29 06:55] VITALS: BP 100/63
--- NOTE | 2018-01-29 08:07 | PN- Housestaff ---
Ernst HARRIS,[facility] 01/29/18 0807: Subjective Follow-up For: Substance abuse Suicidal ideation Subjective: No acute evnets overnight. States neck pain greatly improved with gabapentin. Still having abd pain and diarrhea. Review of Systems Constitutional: Reports: see HPI. Objective Last 24 Hrs of Vital Signs/I&O Vital Signs Date Time Temp Pulse Resp B/P B/P Pulse O2 O2 Flow FiO2 Mean Ox Delivery Rate 01/29 0655 97.9 72 20 100/63 99 Room Air 01/29 0600 97.9 79 20 100/63 01/28 2252 98.4 72 18 100/60 98 01/28 1416 97.5 88 20 102/72 97 Intake & Output 01/29 1600 01/29 0800 01/29 0000 Intake Total 120 300 Output Total Balance 120 300 Intake, Oral 120 300 Patient 157 lb Weight Physical Exam General Appearance: Alert, Oriented X3, Cooperative, No Acute Distress, Patient appears much more calm today than admission day HEENT: PERRLA Cardiovascular: Regular Rate, Normal S1, Normal S2 Lungs: Clear to Auscultation, Normal Air Movement Abdomen: Normal Bowel Sounds, Soft, LLQ tenderness Extremities: No Edema Vascular: 2+ radial pulses Current Medications: Current Medications Sig/Chris Start time Last Medication Dose Route Stop Time Status Admin Acetaminophen 1,000 MG Q6-PRN PRN 01/27 1330 AC 01/27 IV 1337 Acetaminophen 650 MG Q6P PRN 01/26 2330 AC 01/27 PO 0158 Enoxaparin Sodium 40 MG DAILY 01/27 1000 AC SC Folic Acid 1 MG DAILY 01/28 1000 AC 01/29 PO 1028 Gabapentin 300 MG Q8 01/28 1600 AC 01/29 PO 0558 Loperamide HCl 4 MG DAILY 01/27 1345 AC 01/29 PO 1028 Loperamide HCl 2 MG Q6P PRN 01/27 1345 AC PO Lorazepam 1.5 MG Q6 01/28 1800 AC 01/29 PO 1138 Lorazepam 2 MG Q6 01/26 2359 DC 01/28 PO 1307 Lorazepam 0 Q1P PRN 01/26 2345 AC 01/28 IV 0902 Melatonin 5 MG AT BEDTIME 01/27 2200 AC 01/28 PO 2048 Methadone HCl 5 MG BID 01/30 1000 AC PO 01/30 2300 Methadone HCl 10 MG BID 01/29 1000 AC 01/29 PO 01/29 2300 1028 Methadone HCl 15 MG BID 01/28 1000 DC 01/28 PO 01/28 2300 2050 Multivitamins 1 TAB DAILY 01/28 1000 AC 01/29 PO 1028 Nicotine 21 MG DAILY 01/25 1000 AC 01/29 TOP 1028 Thiamine HCl 100 MG DAILY 01/28 1000 AC 01/29 PO 1028 Trimethobenzamide HCl 200 MG Q6-PRN PRN 01/27 1330 AC 01/27 IM 1549 Last 24 Hrs of Lab/Vicente Results Last 24 Hrs of Labs/Mics: Laboratory Tests 01/29/18 1218: Sodium Pending, Potassium Pending, Chloride Pending, Carbon Dioxide Pending, Anion Gap Pending, BUN Pending, Creatinine Pending, BUN/Creatinine Ratio Pending , Magnesium Pending Microbiology 01/28 1336 URINE ROUT: Urine Culture - COLB Orders CIWA Score (last 24 hrs): 4 Assessment/Plan Assessment: A: Mr. Rainey is a 27-year-old gentleman with past medical history of alcohol dependence and polysubstance abuse(opiates, heroine, cocaine), anxiety and depression with suicidal ideation(suicide attempt in 2017) presents for susbtance abuse, suicidal ideation #substance abuse State he drinks 750ml whiskey daily Last drink 4 days ago Utox positive for benzos cocaine and opiates HIV and hepatitis panel negative -patient will be discharge to [facility] -pt currently withdrawing with anxiety, n/v, diarrhea but much improved from yesterday -qtc prolonged >500 -avoid opiates abd benzos and nartcotic pain meds -cont ativan taper -cont methadone taper -f/u psych recommendations -cont thiamine and folate -f/u SW, CM consults #Suicideal ideation -f/u psych recommendations -[facility] admission once medically stable #mild fever with leukocytosis - resolved T max 100.8 -> 98 consistently WBC ->10.7 Blood cx negative thus far UA negative for signs of infxn Hepatitis and HIV negative -most likely reactive -consider endocarditis/c.diff if fevers continue -cont to monitor -f/u castellano cx -conside c.diff testing #diffuse lower abd pain CT abd unremarkable -possibly 2/2 to n/v vs gastro vs diarrhea from [facility] #EKG changes; T-wave inversions in leads V3-V6 Trops <.01 x3 -ruled out ACS DVT prophylaxis; subcutaneous heparin Patient is full code Problem List: 1. Suicidal ideations 2. Alcohol dependence 3. Opiate dependence 4. Depression Pain Ratin Pain Location: LLQ neck Pain Goal: Pain 4 or less Pain Plan: pain pathway Tomorrow's Labs & Rationales: none EganRony caromay 01/29/18 1427: Attending MD Review Statement Attending Statement Attending MD Statement: examined this patient, discuss w/resident/PA/BLOOD DONOR UNIT ASSISTANT, agreed w/resident/PA/BLOOD DONOR UNIT ASSISTANT, reviewed EMR data (avail), discussed with nursing, discussed with case mgmt Attending Assessment/Plan: Dw pt th ecare plan. Pt will be dced to [facility] if bed becomes available. d/w psychiatry the care plan. CIWA scores staying ok and he is not requiring much prn ativan.
--- NOTE | 2018-01-29 08:35 | Patient Discharge Instructions ---
Discharge Instructions General Discharge Information Special Instructions: Please follow up with your PCP 1 week after discharge. Please follow up with your psychiatric provider after discharge from [facility]. Please continue your medications as perscribed. Acute Coronary Syndrome Inclusion Criteria At DC or during hospital stay patient has or had the following: ACS DIAGNOSIS No Discharge Core Measures Meds if any: Prescribed or Continued at Discharge Meds if any: NOT Prescribed or Continued at Discharge Congestive Heart Failure Inclusion Criteria At DC or during hospital stay patient has or had the following: CHF DIAGNOSIS No Discharge Core Measures Meds if any: Prescribed or Continued at Discharge Meds if any: NOT Prescribed or Continued at Discharge Cerebrovascular accident Inclusion Criteria At DC or during hospital stay patient has or had the following: CVA/TIA Diagnosis No Discharge Core Measures Meds if any: Prescribed or Continued at Discharge Meds if any: NOT Prescribed or Continued at Discharge Venous thromboembolism Inclusion Criteria VTE Diagnosis No VTE Type NONE VTE Confirmed by (Test) NONE Discharge Core Measures - Per Current guidelines, there needs to be overlap - treatment for the first 5 days of Warfarin therapy. - If discharged on Warfarin prior to 5 days of - overlap therapy, the patient will need to be - assessed for post discharge needs including - *Post discharge parental anticoagulation - *Warfarin and/or parental anticoagulation education - *Follow up date to check INR post discharge At least 5 days overlap therapy as Inpatient No Meds if any: Prescribed or Continued at Discharge Note: Overlap Therapy is Warfarin and Anticoagulant Meds if any: NOT Prescribed or Continued at Discharge
[2018-01-29] MEDS ORDERED: LORAZEPAM2 MG/1 M1 IV (08:43)
[2018-01-29] MEDS ORDERED: GABAPENTIN300 M2 PO (08:43)
[2018-01-29] MEDS ORDERED: VITAMIN B-1100 MG PO (08:43)
[2018-01-29] MEDS ORDERED: TIGAN100 MG/1 M IM (08:43)
[2018-01-29] MEDS ORDERED: METHADONE HCL10 M1 PO (08:43)
[2018-01-29] MEDS ORDERED: FOLIC ACID1 M1 PO (08:43)
[2018-01-29] MEDS ORDERED: ATIVAN0.5 M1 PO (08:43)
[2018-01-29] MEDS ORDERED: ONE DAILY MULT1 EAC2 PO (08:43)
[2018-01-29] MEDS ORDERED: METHADONE HCL5 MG PO (08:43)
[2018-01-29] MEDS ORDERED: LOPERAMIDE2 M2 PO ×2 (08:43)
[2018-01-29] MEDS ORDERED: MELATONIN5 M7 PO (08:43)
--- NOTE | 2018-01-29 13:36 | Discharge Summary ---
Visit Information Visit Dates Admission Date: 01/26/18 Discharge Date: 01/29/2018 Hospital Course Course Attending Physician: Jignesh HARRIS,Familia Fregoso Primary Care Physician: Patient Has No Primary Care Dr Hospital Course: Mr. Rainey is 27-year-old male with past medical history of alcohol abuse, polysubstance abuse, current smoker presented to ED with suicidal thoughts. Urine tox was obtained which revealed opioids, cocaine and benzodiazepine. Patient was admitted to general medical floor for detox. Psych consultation was obtained. Patient was initially started on Ativan 2 mg p.o every 6, methadone rapid taper in addition to symptomatic treatment of detoxification. During his hospitalization CIWA score was in the low side, patient was found to have severe depression and anxiety and was started on gabapentin based on psych recommendation. Patient will be discharged for admission to Inpatient Psychiatry. Allergies: Coded Allergies: naloxone (ANAPHYLAXIS from +20 mg dose; he can tolerate at low doses 01/29/18) procaine (From NOVOCAIN) (gums swell 01/28/18) Disposition Summary Disposition Principal Diagnosis: Opioids, benzos, cocaine withdrawal Additional Diagnosis: Severe depression Discharge Disposition: other general hospital Discharge Instructions General Discharge Information Code Status: Full Code Patient's Diet: Regular Patient's Activity: As tolerated Follow-Up Instructions/Appts: -Please follow up with your primary care physician within one week after discharge Medications at Discharge Discharge Medications: Continue taking these medications: Nicotine (Nicotine Patch) 21 MG/24 HOUR PATCH.TD24 1 Patch On the skin DAILY Qty = 14 Start taking the following new medications: Methadone Hydrochloride (Methadone HCl) 10 MG TABLET 1 Tablet ORAL TWICE DAILY Qty = 1 No Refills Instructions: PATIENT RECEIVED 1 10MG TAB IN AM ON 01/29/18. PLEASE GIVE PM DOSE AND CONT TAPER. Methadone HCl (Methadone HCl) 5 MG TABLET 1 Tablet ORAL TWICE DAILY Qty = 2 No Refills Instructions: PLEASE COMPLETE METHADONE TAPER ON 01/30/18 Gabapentin (Gabapentin) 300 MG CAPSULE 1 Tablet ORAL EVERY 8 HOURS Qty = 90 No Refills LORazepam (Ativan) 2 MG/ML SDV 0 Milligram INTRAVEN EVERY HR NEEDED as needed for ALCOHOL WITHDRAWAL Qty = 1 No Refills Instructions: FOLLOW CIWA PROTOCOL FOR PRN ATIVAN Lorazepam (Ativan) 0.5 MG TABLET 1.5 Milligram ORAL EVERY SIX HOURS Qty = 1 No Refills Instructions: CONTINUE ATIVAN TAPER Loperamide HCl (Loperamide) 2 MG CAPSULE 2 Tablet ORAL DAILY Qty = 30 No Refills Loperamide HCl (Loperamide) 2 MG CAPSULE 1 Tablet ORAL EVERY SIX HOURS NEEDED as needed for DIARRHEA Qty = 30 No Refills Trimethobenzamide HCl (Tigan) 100 MG/ML VIAL 200 Milligram INTRAMUSC EVERY 6 HOURS NEEDED as needed for NAUSEA/ VOMITING Qty = 30 No Refills Folic Acid (Folic Acid) 1 MG TABLET 1 Tablet ORAL DAILY Qty = 30 No Refills Thiamine HCl (Vitamin B-1) 100 MG TABLET 1 Tablet ORAL DAILY Qty = 30 No Refills Multivitamin (One Daily Multivitamin) 1 EACH TABLET 1 Tablet ORAL DAILY Qty = 30 No Refills Melatonin (Melatonin) 5 MG TABLET 1 Tablet ORAL AT BEDTIME Qty = 30 No Refills Copies To: Jose Torres APRN
[2018-01-29 14:33] VITALS: BP 97/62
== END 2018-01-29 17:50 | DRG 773 ==
LOC: ERH 08:04 → 1NO 01-26 21:54 → ERHI 01-26 21:54 → ENRESERV 01-27 06:43 → ENTRNSPT 01-27 07:19 → ENRESERV 01-27 08:03 → EDTRNSPTSTS 01-27 08:05 → EDTRNSPT 01-27 08:12 → 1NO 01-27 08:24 → CMPTRNSPT 01-27 08:30 → 1NO 01-27 08:36 → ENPENDDIS 01-29 16:29 → ENTRNSPT 01-29 16:52 → EDTRNSPT 01-29 17:01 → EDTRNSPTSTS 01-29 17:01 → EDTRNSPT 01-29 17:19 → CMPTRNSPT 01-29 17:42 → 1NO 01-29 17:50
PROVIDERS: Emergency Medicine; Hospitalist
DX: F10.239 Alcohol dependence with withdrawal, unspecified (principal); F19.239 Other psychoactive substance dependence with withdrawal, unspecified; F14.10 Cocaine abuse, uncomplicated; Y90.0 Blood alcohol level of less than 20 mg/100 ml; F11.20 Opioid dependence, uncomplicated; F13.20 Sedative, hypnotic or anxiolytic dependence, uncomplicated; F17.210 Nicotine dependence, cigarettes, uncomplicated; R45.851 Suicidal ideations; R30.0 Dysuria; Z59.0 Homelessness; F32.9 Major depressive disorder, single episode, unspecified; F41.9 Anxiety disorder, unspecified; Z88.8 Allergy status to other drugs, medicaments and biological substances; R10.30 Lower abdominal pain, unspecified; R94.31 Abnormal electrocardiogram [ECG] [EKG]; Z91.5 Personal history of self-harm; D72.829 Elevated white blood cell count, unspecified; R19.7 Diarrhea, unspecified
CPT/HCPCS: 1NP; ERO; 36415; 36592; 71045; 74176; 80307; 81001; 82436; 87040; 87086; 87389; 93005; 93010; 99233; G0463; G0480; J0131; J1650; J2405; J3101; J3250; J3490

== ENCOUNTER 2018-01-29 10:45 | Inpatient (IN) | payer OTHER ==
[~2018-01-29] VITALS: Ht 175.3 cm; Wt 70.5 kg
[~2018-01-29 10:45] MED LIST: ATIVAN0.5 M1 PO; FOLIC ACID1 M1 PO; GABAPENTIN300 M2 PO; LOPERAMIDE2 M2 PO; LORAZEPAM2 MG/1 M1 IV; MELATONIN5 M7 PO; METHADONE HCL10 M1 PO; METHADONE HCL5 MG PO; NICOTINE PATCH1 EAC3 TOP; ONE DAILY MULT1 EAC2 PO; TIGAN100 MG/1 M IM; VITAMIN B-1100 MG PO
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
[2018-01-29 18:01] VITALS: BP 124/67
[2018-01-29 18:02] VITALS: BP 124/67
[2018-01-29 20:09] VITALS: BP 114/65
[2018-01-29 20:10] VITALS: BP 114/65
[2018-01-30] VITALS (7 sets, daily range): BP systolic 110–123; BP diastolic 53–67
--- NOTE | 2018-01-30 01:05 | PN- Att Addend ---
Attending Addendum Attending Brief Note 27 yo M current everyday smoker, who is homeless, has a h/o alcohol abuse, polysubstance abuse including IVDA previously was on methadone program, depression, was admitted to general medicine floor for detox from alcohol and opiates. He also reported suicidal thoughts. Patient was recently undergoing treatment at [facility] but left AMA. Patient consumes 2 pints of whiskey ( fireball), IV heroin, smokes crack cocaine and purchases benzos (xanax and klonopin) off the street. He has a h/o alcohol withdrawal seizure (last episode was in May 2017). Patient was maintained on ativan per CIWA protocol, and also started on methadone taper to help prevent opiate withdrawal symptoms. He was evaluated by Psych and managed for depression and anxiety. Sitter protocol was maintained. Once medically cleared, patient was transferred to [facility] for further management. Vital Signs Date Time Temp Pulse Resp B/P B/P Pulse O2 O2 Flow FiO2 Mean Ox Delivery Rate 01/29 2010 99.4 98 114/65 01/29 2009 99.4 98 114/65 01/29 1802 98.7 91 124/67 01/29 1801 98.7 91 124/67 Physical Exam General Appearance: Alert, Oriented X3, Cooperative, No Acute Distress. HEENT: PERRLA Cardiovascular: Regular Rate, Normal S1, Normal S2 Lungs: Clear to Auscultation, Normal Air Movement Abdomen: Normal Bowel Sounds, Soft, LLQ tenderness Extremities: No Edema Vascular: 2+ radial pulses Labs reviewed. Electrolytes normal. Admission urine tox screen revealed opiates, cocaine and benzos. Laboratory Tests 01/29 1853 Toxicology Urine Opiates Screen (>2000 NG/ML) < 100 Methadone Screen (>300 NG/ML) > 735 H Barbiturate Screen (>200 NG/ML) < 60 Ur Phencyclidine Scrn (>25 NG/ML) < 6.00 Amphetamines Screen (>1000 NG/ML) < 100 U Benzodiazepines Scrn (>200 NG/ML) 130 Urine Cocaine Screen (>300 NG/ML) 212 Urine Cannabis Screen (>50 NG/ML) < 5.00 27 yo M with h/o alcohol dependence and polysubstance abuse, anxiety, depression , is here for detox from alcohol and opiates, and also reported suicidal thoughts. - Continue management as per Psych team. Continue ativan PRN and methadone taper. - Patient reported to the RN that he flushed some 'heroin' in the toilet, unsure where he got this from. Repeat Urine tox screen is negative for opiates, positive for methadone (which he is receiving for withdrawal symptoms). - Smoking cessation counseling, nicotine patch. - Fever, SIRS of unclear etiology, no source identified. - DVT prophylaxis - low risk, early ambulation. -qtc prolonged >500 -avoid opiates abd benzos and nartcotic pain meds -cont ativan taper -cont methadone taper -f/u psych recommendations -cont thiamine and folate -f/u SW, CM consults #Suicideal ideation -f/u psych recommendations -[facility] once medically stable #mild fever with leukocytosis - resolved T max 100.8 -> 98 consistently WBC ->10.7 Blood cx negative thus far UA negative for signs of infxn Hepatitis and HIV negative -most likely reactive -consider endocarditis/c.diff if fevers continue -cont to monitor -f/u castellano cx -conside c.diff testing #diffuse lower abd pain CT abd unremarkable -possibly 2/2 to n/v vs gastro vs diarrhea from [facility] #EKG changes; T-wave inversions in leads V3-V6 Trops <.01 x3 -ruled out ACS DVT prophylaxis; subcutaneous heparin Patient is full code
--- NOTE | 2018-01-30 16:57 | SOCIAL WORKER PROG NOTE PSYCH ---
Social Work Progress Note Progress Note This writer producer met with patient. He stated that he is interested in going to a sober house upon discharge and following up with outpatient treatment. He is not interested in inpatient treatment at this time. Patient also stated that he is also considering going to a Methadone clinic, which he has done in the past. Patient was agreeable to a family meeting with his father, Josh ([phone]). A vm was left for his father. Patient stated that he will call [phone] this weekend for sober houses. Patient denied SI/HI/AH/VH.
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
[2018-01-31] VITALS (7 sets, daily range): BP systolic 111–140; BP diastolic 57–76
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
--- NOTE | 2018-01-31 19:02 | CP SOUTH PROGRESS NOTE PSYCH ---
Psych (Inpt) Progress Note Progress Note The patient was seen during continuum of care. He is a 27-year-old , single male in treatment for mood disorder with suicidal ideation as well as polysubstance use disorder. We reviewed the patient's medical record and interviewed him 1:1. During the previous night he managed to strp the window of the weather insulation with the aid of a pencil a plastic knife to the point that the window would have fallen off if pushed. Because of this incident, the dangerousness of being able to remove the metalic trim of the window and could have hurt himself or others, we placed the patient on one-to-one observation. We also ordered that the patient change into hospital issued paper scrubs, to not have access to pens or pencils, to not have visitors. He is a medium height, average in weight CM looking younger than stated age. Irritable and demanding. He seemed to be very proud of the fact that he was able to "work" the window on his own. He said that his intention was to "get out of here". He is only superficially cooperative with the interview. There is no overt psychosis, no delusional ideation, no paranoia. The patient denies suicidal/homicidal ideation, auditory/visual hallucinations or side effects from the medications. He is compliant with medication. The patient says he is motivated to stop using alcohol and drugs. He said he wanted to get into a sober house and continue treatment for his mood disorder and substance use problems. The patient is looking at sober living around [facility]. We will continue present medication regimen, observation, symptom monitoring. The patient will be followed up daily by the unit psychiatrist. The patient will continue with his discharge planning to a sober house and outpatient treatment. He wants to be in a methadone program to help with opioid addiction.
[2018-02-01] VITALS (7 sets, daily range): BP systolic 119–123; BP diastolic 51–64
[2018-02-02 07:31] VITALS: BP 122/71
[2018-02-02 07:32] VITALS: BP 122/71
[2018-02-02 11:57] VITALS: BP 124/64
[2018-02-02 11:58] VITALS: BP 124/64
--- NOTE | 2018-02-02 12:41 | CP SOUTH PROGRESS NOTE PSYCH ---
Psych (Inpt) Progress Note Progress Note Late entry for 02/01/2018 The patient was discussed with the unit staff. We reviewed the inpatient and crisis medical records. We interviewed the patient 1:1 Calm,pleasant and cooperative. Decided not to go for methadone maintenance. Found a place in [place] [facility] [place], as sober house living, expects to go there 02/03/2018. He put in 3 day letter, when asked about the rationale for it, he shrugged and said "Why not?". He was seen interacting appropriately with peers and staff members. Continues to remain in scrubs with no visitation allowed. Sleeping and eating well We explained about the procedure to be followed in case 3 day letter is received , and that the 3 days actually start from 02/03/2018. The patient denies suicidal/homicidal ideation, auditory/visual hallucinations or side effects from medication. The patient has good attention and concentration, intact memory, average fund of knowledge and is considered to be of average intelligence We will continue present medication regimen, observation, symptom monitoring. The patient will be followed up daily by the unit psychiatrist. One-to-one observation status was discontinued.
[2018-02-02] MEDS ORDERED: MELATONIN5 M7 PO (13:32)
[2018-02-02] MEDS ORDERED: NICORELIEF2 MG PO (13:32)
[2018-02-02] MEDS ORDERED: ONE DAILY MULT1 EAC2 PO (13:32)
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
--- NOTE | 2018-02-02 15:18 | CP SOUTH PROGRESS NOTE PSYCH ---
Psych (Inpt) Progress Note Progress Note Include the following elements, when applicable: Involvement in the active treatment of the patient with behavioral observations of the patient and the patient's response to the treatment. Review of the ongoing treatment process in the context of the treatment plan. Indication of how multi-disciplinary staff members are carrying out the treatment plan. Plans for future interventions and recommendations for revision of the treatment plan. Liaison with other physicians/providers. Progress Note: Pavithra Hopkins MD's notes reviewed. Case and treatment plan discussed in team meeting. Staff reports that patient is denying suicidal ideation. He submitted a three-day paper. He attempted to remove weather stripping and window from his room apparently with the intention of eloping. He was placed in scrub clothes. Has been denied visitors since then. Family meeting was scheduled for today. Patient seen at 11:34 AM in the context of family meeting with his parents and with Jewell Hood LCSW. Patient is dressed in blue scrubs. Feels good. Affect is calm and euthymic. Reports mood is normal. Rates sat mood 0/10. Rates anxiety 1/10 after having received Ativan. Denies feeling hopeless, helpless or worthless. Feels guilty for life in general. Denies active and passive suicidal ideation. Denies having had suicidal thoughts while here. Denies homicidal ideation. Denies auditory and visual hallucinations and paranoid ideation. Denies withdrawal symptoms. Reports sleep is great and appetite is normal. Reports energy is a little on the lower side. Plans to go to a sober house in [place]. We advised him to consider applying for an inpatient rehab but he does not seem interested. Patient reports allergy to naloxone so I will not be prescribing a Narcan kit. Patient plans to consider methadone treatment through the [facility]. Patient's and parents' questions were addressed. IMPRESSION: Patient has achieved maximum hospital benefit. Okay for discharge today with referral to a sober house in [place], [place].
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
[2018-02-02 16:14] VITALS: BP 122/57
[2018-02-02 16:25] VITALS: BP 122/57
--- NOTE | 2018-02-02 17:32 | SOCIAL WORKER PROG NOTE PSYCH ---
See Addendum Social Work Progress Note Progress Note 10am This telegraphic typewriter repairer spoke with patient's father, Josh Rainey, to schedule a family meeting (scheduled for today at 11am). He was also informed that patient may discharge today and that the patient has identified a sober house where he can stay. Discharge will be discussed further in the family meeting. Mr. Rainey stated that his , the patient's mother, will also be attending the meeting and he will agree to the meeting only if they are both allowed to attend. Mr. Rainey also stated that they will not be providing funds for the sober house. This was relayed to the patient. Patient was agreeable to his mother attending and signed and MARIZA for her. He denied SI/HI/AH/VH. He was informed that he would be provided with warm lines and crisis numbers upon discharge. This telegraphic typewriter repairer and patient called [facility], the [facility] [place] that the patient identified with Dr. Hopkins this weekend. Kendrick, at [facility], described their program, stating that they offer individual therapy, group therapy and medication management. Patient will be seen by a psychiatrist or NATURALIST tomorrow. Kendrick stated that no other treatment needs to be scheduled (or referrals made) and if the patient requires a higher level of care, he will be referred to such treatment. Kendrick stated that the cost is $350 for the first week and $150 for each additional week. Patient stated that he is able to pay this. Kendrick at [facility] was informed of the following: - 02/06 contact information: Dr. Grande, - Contact information for pending studies: Dr. Grande, - Plan for follow up care: Kendrick was informed of [facility] - Primary physician at [facility]: per Dr. Lawrence Marks was also informed of patient's allergies, and stated he would make note of it in the record 11:20am: This telegraphic typewriter repairer, patient, Dr. Maldonado and the patient's mother and father met for the family meeting. Patient's parents expressed concerns about the patient' s likelihood for relapse wihtout a controlled environment. They were informed of [facility] and the services they provide. Patient and his parents expressed interest in the patient taking Methadone. [facility] confirmed that they accept people on Methadone and that their residents utilize the [facility] in [place]. Patient was agreeable to his parents being informed by this telegraphic typewriter repairer or other [facility] staff of when he leaves the hospital (either through [facility] or [facility]). Patient was not agreeable to inpatient treatment and would not accept a list of phone numbers. This telegraphic typewriter repairer attempted to schedule a ride to [facility] through the [facility] , however, was informed that they would not be able to provide a pickle pumper time and recommended calling [facility]. This telegraphic typewriter repairer spoke with Daisha at [facility] (1:55pm) and scheduled a ride to [facility], which she stated would arrive "within the hour." Reference number: [id number] This telegraphic typewriter repairer was unable to refer the patient to the [facility] in [place] ([phone]) as the phone number was not working. This telegraphic typewriter repairer contacted the [facility] in [place] requesting an alternate number, however, this was not available. They also stated that the [place] number experiences difficulties at times. This telegraphic typewriter repairer informed patient and provided him with the number. He will follow up tomorrow. Patient informed this telegraphic typewriter repairer that he would like to drive himself to [facility] rather than utilize the [facility] transportation, however, patient stated, "discharge me to the [facility] ride". With patient's permission, this telegraphic typewriter repairer informed the patient's father, Josh Rainey, that he is expressing interest in driving himself. A voicemail was also left for Kendrick at [facility]. [facility] staff will contact patient's parents and [facility] when patient leaves [facility] as was previously agreed upon. Faxed Referral(s) Referred To: [facility] Transition of Care Documents sent: Health Summary Faxed to: [facility] Fax #: [phone] Faxed by: Walter Hood LCSW Date faxed: 02/02/18 Time Faxed: 1917
== END 2018-02-02 18:55 | DRG 754 ==
LOC: CP SOUTH 10:45
DX: F32.9 Major depressive disorder, single episode, unspecified (principal); F43.10 Post-traumatic stress disorder, unspecified; F11.90 Opioid use, unspecified, uncomplicated; F14.90 Cocaine use, unspecified, uncomplicated; F19.90 Other psychoactive substance use, unspecified, uncomplicated
CPT/HCPCS: 80307; 93005; 93010; J3490